=== PATIENT | male | born 1990 ===

== ENCOUNTER 2017-03-28 10:25 | Emergency (ER) | payer OTHER ==
[~2017-03-28] VITALS: Ht 172.7 cm; Wt 59.1 kg
[~2017-03-28 10:25] MED LIST: IBUP-2070 PO
[2017-03-28] MEDS ORDERED: BACITRACIN 0.9 GM PACKET OINTMENT TP ONE (12:00)
[2017-03-28] MEDS ORDERED: PERTUSS(ACELL),DIPH,TET VAC/PF 0.5 ML VIAL IM ONE (12:00)
[2017-03-28 12:10] VITALS: BP 118/78
== END 2017-03-28 12:30 | disposition home or self-care (01) ==
LOC: EMS 10:26
DX: S41.132A Puncture wound without foreign body of left upper arm, initial encounter (principal); F12.90 Cannabis use, unspecified, uncomplicated; F17.210 Nicotine dependence, cigarettes, uncomplicated; Y04.1XXA Assault by human bite, initial encounter; Y93.89 Activity, other specified; Y92.89 Other specified places as the place of occurrence of the external cause; Y99.8 Other external cause status
CPT/HCPCS: 90471; 90715; 99283